=== PATIENT | male | born 1975 | race Two or more races ===

== ENCOUNTER 2021-06-08 01:32 | Emergency (ER) | payer OTHER ==
[~2021-06-08] VITALS: Ht 172.7 cm; Wt 68.0 kg
[2021-06-08 03:09] LABS: Urine Bacteria MANY /hpf (None Seen); Urine Blood Negative /uL (Negative); Urine Hyaline Cast FEW /lpf (0 - 2); Urine Mucus FEW (None Seen); Urine Specific Gravity 1.029 (1.001-1.035); Urine Sperm PRESENT /hpf (None Seen); Urine WBC 3 /hpf (0 - 3)
[2021-06-08 05:00] VITALS: BP 132/92
[2021-06-08] MEDS ORDERED: cefTRIAXone SOD 1,000 MG VL IM ONE (05:15)
== END 2021-06-08 05:28 | disposition home or self-care (01) ==
LOC: ER 01:36
DX: N43.3 Hydrocele, unspecified (principal); F12.10 Cannabis abuse, uncomplicated; F15.10 Other stimulant abuse, uncomplicated; Z59.0 Homelessness
CPT/HCPCS: 76870; 81001; 96372; 99284; J0696

== ENCOUNTER 2022-07-18 18:38 | Emergency (ER) | payer MEDICAID, OTHER ==
[~2022-07-18] VITALS: Ht 172.7 cm; Wt 63.6 kg
[2022-07-18 18:46] VITALS: BP 105/67
== END 2022-07-19 01:53 | disposition left against medical advice (07) ==
LOC: ER 18:38
DX: R53.1 Weakness (principal); F15.10 Other stimulant abuse, uncomplicated; F11.10 Opioid abuse, uncomplicated; Z53.21 Procedure and treatment not carried out due to patient leaving prior to being seen by health care provider
CPT/HCPCS: 93005